=== PATIENT | female | born 1960 | race Caucasian/White ===

== ENCOUNTER 2020-01-04 08:30 | Outpatient (CLI) | payer OTHER, SELFPAY ==
--- NOTE | ~2020-01-04 | MMUS_ITS ---
EXAMINATION: MM diagnostic ave RT w lisa, US breast RT limited HISTORY: Patient with history of right breast cancer and lumpectomy in the upper breast presents with concern for new lump at the surgical site. TECHNIQUE: Craniocaudal, mediolateral, and mediolateral oblique 3-D tomosynthesis images of the right breast were performed and synthetic 2-D images were generated. CAD analysis was submitted and interp reted. High resolution limited right breast ultrasound was performed. COMPARISON: 07/15/2017 BREAST PARENCHYMAL COMPOSITION: There are scattered areas of fibroglandular density. FINDINGS: MAMMOGRAPHIC FINDINGS: Lumpectomy changes are present in the posterior third of the upper breast. There is no definite suspi cious interval change compared to 2018 examination. ULTRASOUND: There is no definite suspicious cystic or solid mass corresponding to the palpable abnormality. Callahan es related to lumpectomy are apparent. IMPRESSION: 1. Probably benign findings related to prior lumpectomy however only a single prior examination is cu rrently available for comparison although an outside hospital mammographic report describes priors fr om 2019, 2018, 2016, and 2014. Comparison with additional outside hospital mammograms is necessary to assess for interval change. BI-RADS Category 0: Incomplete: Needs comparison with prior mammograms. Reviewed, dictated and finalized at location A. IMPRESSION: 1. Probably benign findings related to prior lumpectomy however only a single p rior examination is currently available for comparison although an outside hosp ital mammographic report describes priors from 2019, 2018, 2016, and 2015. Comp arison with additional outside hospital mammograms is necessary to assess for i nterval change. BI-RADS Category 0: Incomplete: Needs comparison with prior mammograms. IMPRESSION: 1. Probably benign findings related to prior lumpectomy however only a single p rior examination is currently available for comparison although an outside hosp ital mammographic report describes priors from 2019, 2018, 2017, and 2014. Comp arison with additional outside hospital mammograms is necessary to assess for i nterval change. BI-RADS Category 0: Incomplete: Needs comparison with prior mammograms.
== END 2020-01-04 08:31 | disposition home or self-care (01) ==
PROVIDERS: PCP Family Medicine
DX: N63.15 Unspecified lump in the right breast, overlapping quadrants (principal)
CPT/HCPCS: 76642; 77061; 77065; G0279